=== PATIENT | female | born 1990 | race Caucasian/White ===

== ENCOUNTER 2024-02-12 22:16 | Emergency (ER) | payer OTHER, SELFPAY ==
--- NOTE | ~2024-02-12 | XR_ITS ---
EXAMINATION: XR chest 2V DATE: 02/12/2024 22:44 INDICATION: Chest pain. TECHNIQUE: Frontal and lateral views of the chest were obtained. COMPARISON: None. FINDINGS: There is no pneumonia, pleural effusion, or pneumothorax. The heart size is normal. IMPRESSION: 1. No acute cardiopulmonary disease. Reviewed, dictated and finalized at location A.
[2024-02-12 22:18] VITALS: BP 153/89; PULSE 100; RESP 15; TEMP 36.4; O2SAT 100
--- NOTE | 2024-02-12 22:24 | ECG_ITS ---
Test Date: 2024-02-12 22:26:07 Measurements Intervals [place] Rate: 96 P: 56 GA: 158 QRS: 43 QRSD: 88 T: 30 QT: 349 QTc: 442 Interpretive Statements SINUS RHYTHM LOW QRS VOLTAGE POOR R-WAVE PROGRESSION ABNORMAL ECG No previous ECG available for comparison Electronically Signed On 02-13-2024 07:36:19 CDT by Shun Borrero M.D.
[2024-02-12 22:34] LABS: Basophils Absolute Auto 0.1 K/mm3 (0.0-0.1); Basophils Percent Auto 0.6 % (0.2-1.2); Eosinophils Absolute Auto 0.2 K/mm3 (0-0.3); Eosinophils Percent Auto 1.8 % (0-4.4); Hematocrit 40.3 % (37.0-47.0); Immature Granulocyte Absolute 0.08 K/mm3 (0.00-0.031); Immature Granulocyte Percent A 0.8 % (0-0.5); Lymphocytes Absolute Auto 3.46 K/mm3 (0.9-3.2); Lymphocytes Percent Auto 34.8 % (18.3-44.2); Mean Corpuscular HGB Conc 34.7 g/dl (32-36); Mean Corpuscular Hemoglobin 30.6 pg (26-34); Mean Corpuscular Volume 88.2 fl (80-100); Mean Platelet Volume 9.3 fl (7.4-10.4); Monocytes Absolute Auto 1.1 K/mm3 (0.1-0.6); Monocytes Percent Auto 10.8 % (2.6-8.5); Neutrophils Absolute Auto 5.1 K/mm3 (1.3-6.7); Neutrophils Percent Auto 51.2 % (45.5-73.1); Platelet Count Result 248 k/mm3 (150-375); Red Blood Count 4.57 M/mm3 (4.2-5.4); Red Cell Distribution Width 12.6 % (11.5-14.5); White Blood Count 9.9 K/mm3 (4.5-10.0)
[2024-02-12 22:51] LABS: INR 0.9
[2024-02-12 22:52] LABS: Partial Thromboplastin Time 27.7 Seconds (22.3-36.8)
[2024-02-12] MEDS: ASPIRIN 81 MG CHEWABLE TABLET 324 MG PO (22:59)
[2024-02-12 23:01] LABS: Alanine Aminotransferase 28 U/L (6-35); Albumin Level 4.5 g/dL (3.5-5.1); Alkaline Phosphatase 66 U/L (38-126); Anion Gap 11 mmol/L (4-12); Aspartate Amino Transferase 33 U/L (14-36); Bilirubin,Total 0.6 mg/dL (0.2-1.3); Blood Urea Nitrogen 18 mg/dL (7-17); Calcium 9.4 mg/dL (8.4-10.2); Carbon Dioxide 26 mmol/L (22-30); Chloride 101 mmol/L (98-107); Estimated CRCL calculation 83 ml/min; Estimated Glomerular Filt Rate > 60; Glucose 106 mg/dL (65-110); Lipase 279 U/L (23-300); Potassium 3.9 mmol/L (3.4-5.0); Sodium 138 mmol/L (137-145)
--- NOTE | 2024-02-12 23:04 | ED.CHESTPAIN ---
HPI - Chest Pain General Chief Complaint: Chest Pain Stated Complaint: chest pain Time Seen by Provider: 02/12/24 22:29 Source: patient Mode of arrival: ambulatory Limitations: no limitations History of Present Illness HPI narrative: This is a 33-year-old female who presents to the ED with chief complaint of chest pain intermittent for the past week. Patient reports today she started to feel paresthesias in her left arm and left leg but denies any strength loss. States that there is some pain that feels like a band wrapping around the left leg. Reports the pain in the chest is midsternal and does not really radiate. Denies association with exertion. Denies recent illness, fevers, chills, cough, shortness of breath. Does endorse a lot of increased stress lately with her family members being sick and changing jobs. Related Data Allergies Allergy/AdvReac Type Severity Reaction Status Date / Time No Known Allergies Allergy Verified 02/12/24 22:25 Review of Systems Review of Systems: All systems as dictated in HPI Exam Narrative: GENERAL: Well-appearing, well-nourished, and in no acute distress. HEAD: Normocephalic, atraumatic. EYES: PERRLA and EOMI. ENT: Nares clear, no rhinorrhea or epistaxis. Mucous membranes moist. Oropharynx without tonsillar hypertrophy exudate or other lesions. NECK: Supple. No adenopathy or masses. CHEST: No respiratory distress. Clear to auscultation. No wheezes rales or rhonchi HEART: Regular rate and rhythm. No murmur heard. Normal peripheral pulses. ABDOMEN: Soft, nontender, nondistended, normal active bowel sounds. MSK: Normal range of motion. No edema. SKIN: Warm, dry, no rash. NEURO: Alert and oriented x4. No focal deficits. PSYCH: Normal mood and affect. Course Vital Signs Vital signs: Vital Signs Temperature 97.6 F 02/12/24 22:18 Pulse Rate 100 02/12/24 22:18 Respiratory Rate 15 02/12/24 22:18 Blood Pressure 153/89 H 02/12/24 22:18 Pulse Oximetry 100 02/12/24 22:18 Oxygen Delivery Room Air 02/12/24 22:18 Temperature 97.6 F 02/12/24 22:18 Pulse Rate 100 02/12/24 22:18 Respiratory Rate 15 02/12/24 22:18 Blood Pressure 153/89 H 02/12/24 22:18 Pulse Oximetry 100 02/12/24 22:18 Oxygen Delivery Room Air 02/12/24 22:18 MDM - Chest Pain MDM Narrative Medical decision making narrative: This is a 33-year-old female who presents to the ED with chief complaint of chest pain and extremity paresthesias. Vitals are normal. Exam is benign overall. ECG shows sinus rhythm with no acute ischemic findings. Troponin and D-dimer are normal. Chest x-ray is normal. Patient is pain free on re-evaluation. Heart score 0. Pt will be discharged in stable condition. Return precautions given and supportive measures discussed. Pt is understanding and agreeable with plan for discharge and follow-up with PCP. Lab Data 02/12/24 22:30 02/12/24 22:30 Labs: Lab Results 02/12/24 02/12/24 Range/Units 22:29 22:30 WBC 9.9 (4.5-10.0) K/mm3 RBC 4.57 (4.2-5.4) M/mm3 Hgb 14.0 (12.0-15.0) g/dL Hct 40.3 (37.0-47.0) % MCV 88.2 (80-100) fl MCH 30.6 (26-34) pg MCHC 34.7 (32-36) g/dl RDW 12.6 (11.5-14.5) % Plt Count 248 (150-375) k/mm3 MPV 9.3 (7.4-10.4) fl Immature Gran % (Auto) 0.8 H (0-0.5) % Neut % (Auto) 51.2 (45.5-73.1) % Lymph % (Auto) 34.8 (18.3-44.2) % [place] % (Auto) 10.8 H (2.6-8.5) % Eos % (Auto) 1.8 (0-4.4) % Baso % (Auto) 0.6 (0.2-1.2) % Lymph # (Auto) 3.46 H (0.9-3.2) K/mm3 [place] # (Auto) 1.1 H (0.1-0.6) K/mm3 Eos # (Auto) 0.2 (0-0.3) K/mm3 Baso # (Auto) 0.1 (0.0-0.1) K/mm3 Abs Immat Gran (auto) 0.08 H (0.00-0.031) K/mm3 Absolute Neuts (auto) 5.1 (1.3-6.7) K/mm3 Absolute Nucleated RBC 0.000 (0.0-0.012) K/mm3 Nucleated RBC % 0.0 (0.0-0.2) % PT 13.0 (11.1-14.7) Seconds INR 0.9 APTT 27.7 (22.3-36
[2024-02-12 23:13] LABS: Troponin I < 0.012 ng/mL (0.000-0.034)
[2024-02-12 23:30] VITALS: BP 133/90; PULSE 69; PULSE 72; RESP 14; O2SAT 100
[2024-02-13 00:14] LABS: D Dimer 0.46 ug/mL (<0.48)
== END 2024-02-13 00:30 | disposition home or self-care (01) ==
PROVIDERS: Emergency Medicine; Emergency Provider Physician Assistant
DX: R07.89 Other chest pain (principal); R20.2 Paresthesia of skin; R94.31 Abnormal electrocardiogram [ECG] [EKG]
CPT/HCPCS: 36415; 71046; 80053; 83690; 84484; 85025; 85380; 85610; 85730; 93005; 99284; A9270

== ENCOUNTER 2024-09-27 12:51 | Outpatient (CLI) | payer BC, SELFPAY ==
--- NOTE | ~2024-09-27 | MMUS_ITS ---
EXAMINATION: US breast BI complete, MM diagnostic jossy BI w james HISTORY: Follow-up abnormal mammogram TECHNIQUE: Additional 3-D tomosynthesis images of the breasts were performed and synthetic 2-D images were generated. CAD analysis was submitted and interpreted. High resolution bilateral complete breas t ultrasound was performed. COMPARISON: Comparison to multiple prior studies sequentially, with oldest reviewed study dated 01/06. BREAST PARENCHYMAL COMPOSITION: Dense: The breasts are heterogeneously dense, which may obscure small masses FINDINGS: MAMMOGRAPHIC FINDINGS: There is focal asymmetry in the superior aspect of the left breast on MLO view, middle third. There i s no mammographic evidence for malignancy in the right breast. Stable right breast asymmetries. ULTRASOUND: Complete US of all 4 quadrants of the breast/s and retroareolar region was reviewed. Right breast: At 8:00, 3 cm from the nipple there is a cluster of microcysts measuring 7 mm in aggreg ate. At 9:00, 4 cm from the nipple there is a 3 mm cyst. Left breast: At 2:00, 4 cm from the nipple there are cysts. The largest measures 7 mm. At 8:00, 3 cm from the nipple there is a 4 mm cyst. At 11:00, 3 cm from the nipple there is an oval hypoechoic mass with internal cystic changes, likely a benign cluster of microcysts measuring 8 mm. IMPRESSION: 1. No evidence for malignancy in the right breast. Probable benign left breast mass at 11:00, 3 cm fr om the nipple. 2. Recommend 6 month follow-up diagnostic left mammogram and Limited left breast ultrasound BI-RADS category 3, probably benign findings. Reviewed, dictated and finalized at location B. IMPRESSION: 1. No evidence for malignancy in the right breast. Probable benign left breast mass at 11:00, 3 cm from the nipple. 2. Recommend 6 month follow-up diagnostic left mammogram and Limited left breas t ultrasound BI-RADS category 3, probably benign findings.
--- OUTSIDE RECORDS SUMMARY | 2024-09-27 14:06 | XMS_ITS | Encounter Summary ---
Author Organization [facility] Address [address] [place] [address] Phone Care Team Providers Care Bulk Materials Handling Plant Operator Name Role Phone Lolly Chatman PAC Primary Care Provider + Encounter Details Date Type Department Care Team ([facility] st Contact Info) Description 09/07/2024 Telephone [facility] - Primary Care [address] [phone] Lolly Chatman, PAC [address] [place] [address] Social History Tobacco Use Types Packs/Day Years Used Date Smoking Tobacco: Never Smokeless Tobacco: Never Alcohol Use Standard Drinks/Week Comments Yes 1 (1 standard drink = 0.6 oz pur e alcohol) social PHQ-2 Answer Date Recorded Total Score - Questions 1-9 0 06/17 Sexually Active Control Partners Comments Yes I.U.D. Female Comments No Sex and Gender Information Value Date Recorded Sex Assigned at Not on file Legal Sex Female 2:05 PM CDT Gender Identity Not on file Sexual Orientation Not on file documented as of this encounter Miscellaneous Notes * Telephone Encounter - Shauna Healy - 09/07/2024 4:43 PM CDT PCP clean up attempt #1- left voicemail documented in this encounter Plan of Treatment Not on file documented as of this encounter Visit Diagnoses Not on filedocumented in this encounter Additional Health Concerns Assessment Noted Time PHQ-9 Depression Total Score: 0 07/14/19 21 12:00 PM FINANCIAL REPRESENTATIVE documented as of this encounter Care Teams Bulk Materials Handling Plant Operator Relationship Specialty Start Date End Date Lolly Chatman PAC PCP - General Physician Prop Attendant 02/16/20 09/09/24 documented as of this encounter
--- OUTSIDE RECORDS SUMMARY | 2024-09-27 14:06 | XMS_ITS | Encounter Summary ---
Author Organization [facility] Address [address] [place] [address] Phone Care Team Providers Care Nuisance Animal Damage Control Agent Name Role Phone Lolly Chatman Primary Care Provider + Reason for Visit * Reason Comments Medication Refill Encounter Details Date Type Department Care Team (Late st Contact Info) Description 05/30/2021 Refill [facility] - Endocrinology & Diabetes - [place] [address] [place] [phone] Hugh Garza MD [address] [place] [address] Medication Refill Social History Tobacco Use Types Packs/Day Years [...] on file Sexual Orientation Not on file COVID-19 Exposure Response Date Recorded In the last month, have you been in contact with someone who was confirmed or suspected to have Coronavirus / COVID-19? No / Unsure 05/30/2021 12:47 PM TANK FARM GAUGER documented as of this encounter Miscellaneous Notes * Telephone Encounter - Felicitas Kumar RN - 05/30/2021 11:59 AM CST Pharmacy requested a refill on the following medication(s): Requested Prescriptions Pending Prescriptions Disp Refills ??? levothyroxine (SYNTHROID) 125 MCG Tablet [Pharmacy Med Name: LEVOTHYROXINE 0.125MG (125MCG) TAB] 90 Tablet 1 Sig: TAKE 1 TABLET BY MOUTH DAILY Last refill: 11/24/20 #90, R: 1 Labs were last completed on: 09/14/20 Are there overdue labs orders? Yes, TSH, FT4, And Tumor marker due 02/14/21 .Refill refused with this reason. Last OV: 10/10/2020 Next OV: Visit date not found Routing to provider. FARM GAUGER documented in this encounter Plan of Treatment Not on file documented as of this encounter Visit Diagnoses Not on filedocumented in this encounter Additional Health Concerns Assessment Noted Time PHQ-9 Depression Total Score: 0 07/14/19 12:00 PM TANK FARM GAUGER documented as of this encounter Care Teams Nuisance Animal Damage Control Agent Relationship Specialty Start Date End Date Lolly Chatman PAC PCP - General Physician Integrated Logistics Operations Manager 02/16/20 09/09/24 documented as of this encounter
--- OUTSIDE RECORDS SUMMARY | 2024-09-27 14:06 | XMS_ITS | Clinical Summary ---
Author Organization [facility] Address [address] [place] [address] Care Team Providers Care Clinical Rn Manager Name Role Phone Daisha Garber MD Primary Care Provider [phone] Allergies No known active allergies Medications Ca Phosphate-Becca calciferol 250-10 MG-MCG Chew Tab Chew 1 tablet by mouth daily. Active levothyroxine (SYNTHROID) 125 MCG tabletIndicatio ns:Disease of thyroid gland Take 1 tablet (125 mcg total) by mouth daily. 90 tablet 06/01/2024 Active sertraline (ZOLOFT) 50 MG tabletIndicatio ns:JOSE MANUEL (generalized anxiety disorder) Take 1.5 tablets (75 mg total) by mouth nightly. 135 tablet 1 07/30/2024 Active Active Problems Problem Noted Date Diagnosed Date Anxiety Overview (04/16/2024): generalized anxiety disorder Disease of thyroid gland Overview (04/16/2024): thyroid cancer (microcarcinoma) Encounters Date Type Department Care Team Description 09/21/2024 Telephone [facility] [place] [address] [place] [address] Daisha Garber MD Mammography Order 07/30/2024 7:20 AM CRIMINALIST TECHNICIAN Office Visit [facility] [facility] [place] [address] [place] [address] Daisha Garber MD Depression; Anxiety; Abnormal Mammography 07/30/2024 Travel 07/13/2024 Telephone [facility] Multispecialty Care - [address] [place] [address] Daisha Garber MD Results from Last 3 Months Immunizations Immunization Administration Dates Next Due Fluzone (IIV3, Trivalent, 0. 5 ML Prefilled Syringe) 06/01/2024 Influenza Adult (Generic) 03/22/2023,05/03/2022, 02/16/2020 Td (TDVAX) 12/13/2021 Tdap (Adacel) 06/01/2024 Family History Medical History Relation Comments Cancer Father melanoma Hypertension Father Arthritis Maternal Grandfather Cancer Maternal Grandfather prostate Heart Disease Maternal Grandfather heart attac k (survived) Hypertension Maternal Grandfather Arthritis Maternal Grandmother Heart Disease Maternal Grandmother heart attac k (survived) Hypertension Maternal Grandmother Mental Health Maternal Grandmother anxiety Miscarriages / Stillbirths Maternal Grandmother Vision loss Maternal Grandmother glaucoma Arthritis Mother Asthma Mother Heart Disease Mother Afib, HBP Hypertension Mother Heart Disease Paternal Grandfather heart attac k (cause of ) Cancer Paternal Grandmother breast Heart Disease Paternal Grandmother heart attac k (cause of ) Hypertension Paternal Grandmother Alcohol Abuse Paternal Uncle 1 Heart Disease Paternal Uncle 2 heart attack (c ause of ) Mental Health Sister anxiety Relation Status Comments Father Maternal Grandfather Maternal Grandmother Mother Paternal Grandfather Paternal Grandmother Paternal Uncle 1 Paternal Uncle 2 Sister Social History Tobacco Use Types Packs/Day Years Used Date Smoking Tobacco: Never Smokeless Tobacco: Never Tobacco Cessation:Counseling Given: Yes Comments:Counseled by Dr. Garber. Alcohol Use Standard Drinks/Week Comments Not Currently 0 (1 standard drink = 0.6 oz pur e alcohol) < 1 drink a week AUDIT-C Answer Date Recorded Q1: How often do you have a drink containing alcohol? Never 04/16/2024 Q2: How many drinks containi ng alcohol do you have on a typical day when you are drinking? Patient does not drink Q3: How often do you have si x or more drinks on one occasion? Never 04/16/2024 PHQ-2 Answer Date Recorded Patient Health Questionnaire-2 Score 0 06/01/2024 Comments No Sex and Gender Information Value Date Recorded Sex Assigned at Female 07/30/2024 7:26 AM CRIMINALIST TECHNICIAN Legal Sex Female 9:40 AM CDT Gender Identity Female 07/30/2024 7:26 AM CRIMINALIST TECHNICIAN Sexual Orientation Not on file Last Filed Vital Signs Vital Sign Reading Time Taken Comments Blood Pressure 132/89 07/30/2024 7:27 AM CRIMINALIST TECHNICIAN Pulse 75 07/30/2024 7:27 AM CRIMINALIST TECHNICIAN Temperature 37 C (98.6 F) 07/30/2024 7:27 AM CRIMINALIST TECHNICIAN Respiratory Rate 16 07/30/2024 7:27 AM CRIMINALIST TECHNICIAN Oxygen Saturation 98% 07/30/2024 7:27 AM CRIMINALIST TECHNICIAN Inhaled Oxygen Concentration - - Weight 84.3 kg (185 lb 12.8 oz) 07/30/2024 7:27 AM CRIMINALIST TECHNICIAN Height 165.1 cm (5' 5 ) 07/30/2024 7:27 AM CRIMINALIST TECHNICIAN Body Mass Index 30.92 07/30/2024 7:27 AM CRIMINALIST TECHNICIAN Plan of Treatment Upcoming Encounters Date Type Department Care Team (Late st Contact Info) Description 01/26/2025 7:20 AM CDT Office Visit [facility] Multispecialty Care - [address] [address] [address] [place] [address] Daisha Garber MD [address] [place] [address] [address] [place] [address] Health Maintenance Due Date Last Done Comments Hepatitis B Vaccines (1 of 3 - 19+ 3-dose series) 2008 Cervical Cancer Screening Pap Smear (Age 30 to 64) Every 3 Years 07/14/2023 07/14/2020, 07/14/2020 COVID-19 Vaccine ( season) 2024 03/22/2023, 05/03/2022, 05/18/2021, Additional history exists PHQ-2 (Physician [place]) 06/16/2024 06/01/2024 Annual Physical 04/16/2025 04/16/2024 Cervical Cancer Screening Pap with HPV Testing (Age 30 to 64) Every 5 Years 07/14/2025 07/14/2020, 07/14/2020, 07/14/2020 Cervical Cancer Screening with HPV 07/14/2025 DTaP, Tdap and Td Vaccines (2 - Td or Tdap) 06/01/2034 06/01/2024, 12/13/2021 Hepatitis C Completed 04/21/2024 HPV Vaccines Aged Out No longer eligi ble based on patient's age to complete this topic Meningococcal B Vaccine Aged Out No l onger eligible based on patient's age to complete this topic Meningococcal Vaccine Aged Out No isabela marixa eligible based on patient's age to complete this topic Pneumococcal Vaccine: Pediatrics (0 to 5 Years) and At-Risk Patients (6 to 49 Years) Aged Out No longer eligible based on patient's age to complete this topic RSV Immunizations Under 20 Months Aged Out No longer eligible based on patient's age to complete this topic Procedures Procedure Name Priority Date/Time Associated Diagnosis Comments EVENT RECORDER (ECG) UP TO 30 DAYS COMPLETE Routine 07/12/2024 2:57 PM CRIMINALIST TECHNICIAN Palpitations HEPATITIS C ANTIBODY Routine 04/21/2024 7:33 AM CRIMINALIST TECHNICIAN Annual physical exam Establishing care with new doctor, encounter for General medical exam Encounter for hepatitis C screening test for low risk patient OUTSIDE CYTOPATH CERV/VAG INTERPRET (PAP) 07/14/2020 from Last 3 Months or Most Recently Relevant to Health Maintenance Results * EVENT RECORDER (ECG) UP TO 30 DAYS COMPLETE (07/12/2024 2:57 PM CRIMINALIST TECHNICIAN) [facility] - 07/12/2024 2:57 PM CRIMINALIST TECHNICIAN [address] [place] [address] MANAGER ECONOMIC REPORT PATIENT NAME: Jacqueline López : 1990 PCP: DAISHA GARBER MD INTERPRETING CHIEF INFORMATICS OFFICER: Polly Moncada MD INDICATION: Palpitations Baseline Rhythm * The baseline rhythm was Sinus Rhythm with heart rates ranged between 50 and 172 beats per minute, with average rate of 71 beats per minute. A-V Conduction * No Second Degree AV Block Type II. * No Third Degree AV Block. * No Pauses. Supraventricular Arrhythmia * There were 978 Supraventricular Ectopic beats with a burden of <1%. * 1 Supraventricular Tachycardia events - the longest episode was 1.0s on 06/13 00:21, and the fastest episode was 109 BPM on 06/13 00:21. Ventricular Arrhythmia * There were 771 Ventricular Ectopic beats with a burden of <1%. * No Ventricular Tachycardia. Atrial Fibrillation * No Atrial Fibrillation. Patient Triggered Events * 17 patient triggered events, 15 had symptoms specified. SUMMARY: Normal monitor, no significant arrhythmia burden noted. No symptom rhythm correlation Daisha Garber MD CV VASCULAR ORDERABLES Final Res ult [facility] * HEPATITIS C ANTIBODY (04/21/2024 7:33 AM CRIMINALIST TECHNICIAN) HEPATITIS C AB NON-REACTI VE NON-REACT LAYLA 04/21/2024 6:41 PM CRIMINALIST TECHNICIAN [facility] Comment: ANTIBODIES TO HCV NOT DETECTED. DOES NOT EXCLUDE THE POSSIBILITY OF EXPOSURE TO HCV. 04/21/2024 7:33 AM CRIMINALIST TECHNICIAN Daisha Garber MD LABORATORY Final Result Performing Organization Address City/[facility]/ZIP Co de Phone Number [facility] [address] [place] [address], [id number] * PAP SMEAR WITH HPV (07/14/2020) 07/14/2020 [facility] Scanned SCANNING Final Resu lt from Last 3 Months or Most Recently Relevant to Health Maintenance Insurance Care Teams Clinical Rn Manager Relationship Specialty Start Date End Date Daisha Garber MD [address] [address] PCP - General INTERNAL MEDICINE 04/16/24
--- OUTSIDE RECORDS SUMMARY | 2024-09-27 14:06 | XMS_ITS | Clinical Summary ---
Author Organization [facility] Address [address] [place] [address] Phone Care Team Providers Care Manager Business Planning Name Role Phone Unavailable Primary Care Provider Unavailabl e Allergies No known active allergies Medications levothyroxine (SYNTHROID) 125 MCG Tablet Take 1 Tablet by mouth daily. 90 Tablet 3 12/05/2023 Active Wegovy 0.25 MG/0.5ML Solution Auto-injector 0.25 mg once a week for 4 weeks 2 mL 1 12/05/2023 Active Active Problems Problem Noted Date Diagnosed Date History of thyroid cancer 07/23/2023 History of dysmenorrhea 11/29/2020 Personal history of dysmenorrhea 10/04/2020 History of menorrhagia 10/04/2020 Well woman exam with routine gynecological exam 07/14/2020 Pap smear for cervical cancer screening 07/14/19 Presence of IUD 07/14/2020 Assessment & Plan (10/04/2020 10:59 AM CDT): Old IUD removed on 10-04-20 New Mirena IUD placed on 10-04-20 Dysmenorrhea 07/14/2020 Encounters Date Type Department Care Team Description 09/07/2024 Telephone [facility] - Primary Care [facility] [address] [place] [address] Lolly Chatman PAC from Last 3 Months Immunizations Immunization Administration Dates Next Due Covid-19, Mrna, Lnp-s, PF, 1 00 mcg/0.5 mL Dose (Moderna) 09/22/2020,08/24/2020 Influenza Vaccine, Quadrivalent, PF 05/03/2022,0 02/16/2020 TD VACCINE 12/13/2021 Family History Medical History Relation Name Comments Cancer Father skin cancer Hypertension Father Heart Attack Maternal Grandfather Javier Hypertension Mother Heart Attack Paternal Grandfather Cedric cause o f Breast Cancer Paternal Grandmother Vicky Heart Attack Paternal Grandmother Vicky cause o f Heart Attack Paternal Uncle 1 Heart Attack Paternal Uncle 2 Francisco cause of de ath Relation Name Status Comments Father Maternal Grandfather Javier Mother Paternal Grandfather Cedric Paternal Grandmother Vicky Paternal Uncle 1 Paternal Uncle 2 Francisco Social History Tobacco Use Types Packs/Day Years Used Date Smoking Tobacco: Never Smokeless Tobacco: Never Tobacco Cessation:Counseling Given: Not Answered Alcohol Use Standard Drinks/Week Comments Yes 1 [...] on file Sexual Orientation Not on file Last Filed Vital Signs Vital Sign Reading Time Taken Comments Blood Pressure 112/70 12/12/2023 8:04 AM CDT Pulse 66 12/12/2023 8:04 AM CDT Temperature 36.2 C (97.2 F) 12/12/2023 8:04 AM CDT Respiratory Rate 18 12/12/2023 8:04 AM CDT Oxygen Saturation 99% 12/12/2023 8:04 AM CDT Inhaled Oxygen Concentration - - Weight 81.7 kg (180 lb 1.6 oz) 12/12/2023 8:04 A M CDT Height 165.1 cm (5' 5 ) 12/12/2023 8:04 AM CDT Body Mass Index 29.97 12/12/2023 8:04 AM CDT Plan of Treatment Health Maintenance Due Date Last Done Comments Hepatitis C Virus (HCV) Screening 1989 TdaP Immunization 1989 Hepatitis B Immunization (1 of 3 - 19+ 3-dose series) 2008 Pneumococcal Immunization Combined (1 of 2 - PCV) 2008 Pap Smear 07/14/2023 07/14/2020 Influenza Immunization (#1) 2024 10/0 12/2022, 05/03/2022, 02/16/2020 SARS-COV-2 Immunization ( season) 2024 03/22/2023, 05/03/2022, 05/18/2021, Additional history exists Cervical Cancer Screening (CCS) 07/14/2025 HPV/Cotest 07/14/2025 07/14/2020 Respiratory Syncytial Virus (RSV) Immunization (Adult) (1 - 1-dose 75+ series) 2064 DTaP/Tdap/Td Immunization Discontinued 12/13/2021 Meningococcal Immunization (ACWY) Aged Out No longer eligible based on patient's age to complete this topic Rotavirus Immunization Aged Out No lo nger eligible based on patient's age to complete this topic Procedures Procedure Name Priority Date/Time Associated Diagnosis Comments HUMAN PAPILLOMA VIRUS (HPV) Routine 07/14/2020 1:29 PM CITY CLERK Pap smear for cervical cancer screening PATHOLOGY CYTOLOGY LITHOGRAPHED PLATE INSPECTOR Routine 07/14/2020 1:29 PM CITY CLERK Pap smear for cervical cancer screening from Last 3 Months or Most Recently Relevant to Health Maintenance Results * PATHOLOGY CYTOLOGY LITHOGRAPHED PLATE INSPECTOR (07/14/2020 1:29 PM CITY CLERK) SPECIMEN ADEQUACY Satisfactory for evaluation. Endocervical/transf ormation zone component is absent. 07/27/2020 10:41 AM CITY CLERK [facility] DESCRIPTIVE DIAGNOSIS NEGATIVE FOR INTRAEPITHELIAL LESIONS OR MALIGNANCY. 07/27/2020 10:41 AM CITY CLERK [facility] at [address] CITY CLERK OTHER FINDINGS Predominance of coccobacilli present consistent with shift in vaginal manolo. 07/27/2020 10:41 AM CITY CLERK [facility] HPV Reflex if ASCUS? No 07/27/2020 10:41 AM CITY CLERK [facility] Automated Examination Analysis of this sample has been assisted by an automated imaging and review system (Thinprep Imaging System, [employer], [place], [place]). This case is further evaluated and finalized by a auto emissions technician and/or pathologist. 07/27/2020 10:41 AM CITY CLERK [facility] Disclaimer The PAP smear is a screening test designed to detect cancerous or precancerous cells of the uterine cervix. It is one of the best means available for detection of cervical cancer but still carries an inherent false-negative rate. The consequences of a false-negative PAP result can be minimized by adhering to current screening guidelines. The following are general guidelines recommended by the ACS, ASCP, ASCCP, and ACOG: PAP testing is recommended every three years for women 21-29, Co-Testing , a PAP test in conjunction with an HPV (Human Papillomavirus) test for women ages 30-65, and no PAP or HPV testing for women under the age of 21 or older than 65 unless clinically indicated. 07/27/2020 10:41 AM CITY CLERK [facility] Other CERVIX UTERI STRUCTURE / Unknown Non-Phlebotomy Collection / Unknown 07/14/2020 1:29 PM CITY CLERK 07/14/2020 1:29 PM CITY CLERK us Brittany Patel APRN, CNM PATHOLOGY/CYTOLOGY ORD ERABLES Final Result [facility] [address] [place] [address], * HUMAN PAPILLOMA VIRUS (HPV) (07/14/2020 1:29 PM CITY CLERK) HPV OTHER HIGH RISK TYPES, PCR NEGATIVE NEGATIVE 07/17/2020 3:08 PM CITY CLERK [facility] Comment: The following Other High Risk types were not detected: 31, 33, 35, 39, 45, 51, 52, 56, 58, 59, 66, and 68. A negative high-risk HPV result does not exclude the possibility of future cytologic HSIL or underlying CIN2-3 or cancer. The presence of PCR inhibitors may cause false negative or invalid results. If concentrations of whole blood in the sample exceed 1.5% (dark red or brown coloration) in PreservCyt solution, there is a likelihood of obtaining a false-negative result. HPV TYPE 16 NEGATIVE NEGATIVE 07/17/2020 3:08 PM CITY CLERK [facility] Comment: A negative high-risk HPV result does not exclude the possibility of future cytologic HSIL or underlying CIN2-3 or cancer. The presence of PCR inhibitors may cause false negative or invalid results. If concentrations of whole blood in the sample exceed 1.5% (dark red or brown coloration) in PreservCyt solution, there is a likelihood of obtaining a false-negative result. HPV TYPE 18 NEGATIVE NEGATIVE 07/17/2020 3:08 PM CITY CLERK [facility] Comment: A negative high-risk HPV result does not exclude the possibility of future cytologic HSIL or underlying CIN2-3 or cancer. The presence of PCR inhibitors may cause false negative or invalid results. If concentrations of whole blood in the sample exceed 1.5% (dark red or brown coloration) in PreservCyt solution, there is a likelihood of obtaining a false-negative result. HPV ORDER BE USED FOR SCREENING OR DIAGNOSTIC SCREENING 07/17/2020 3:08 PM CITY CLERK [facility] Blood Venipuncture / Unknown 07/14/2020 1:29 PM CITY CLERK 07/14/2020 1:29 PM CITY CLERK Narrative [facility] - 07/17/2020 3:08 PM CITY CLERK Performed by Real-Time Polymerase Chain Reaction (PCR) on the [employer] 4800. This assay has been validated for use with post-aliquot samples from the [employer] processor. us Brittany Patel APRN, CNM LAB SEND OUTS Final Result [facility] [address] [place] [address], [place] from Last 3 Months or Most Recently Relevant to Health Maintenance Insurance [facility]
--- OUTSIDE RECORDS SUMMARY | 2024-09-27 14:06 | XMS_ITS | Encounter Summary ---
Author Organization [facility] Address [facility] [place] [address] Care Team Providers Care Sales Solutions Representative Name Role Phone Daisha Garber MD Primary Care Provider [phone] Encounter Details Date Type Department Care Team (Latest Contact Info) Description 04/26/2024 [email or web address] Message Enc [facility] [place] [address] [place] [address] [address] [place] [address] Daisha Garber MD [address] [place] [address] [address] [place] [address] Dermatology Referral Social History Tobacco Use Types Packs/Day Years Used Date Smoking Tobacco: Never Smokeless Tobacco: Never Comments:Counseled by Dr. Alondra gatica. Alcohol Use Standard Drinks/Week Comments Not Currently [...] Date Recorded Patient Health Questionnaire-2 Score 0 04/16/2024 Comments No Sex and Gender Information Value Date Recorded Sex Assigned at Female 07/30/2024 7:26 AM DIRECTOR OF COMMUNITY CENTER Legal Sex Female 9:40 AM CDT Gender Identity Female 07/30/2024 7:26 AM DIRECTOR OF COMMUNITY CENTER Sexual Orientation Not on file documented as of this encounter Plan of Treatment Upcoming Encounters Date Type Department Care Team (Late st Contact Info) Description 01/26/2025 7:20 AM CDT Office Visit [facility] - [place] [address] [address] [place] [address] Daisha Garber MD [address] [place] [phone] documented as of this encounter Visit Diagnoses Not on filedocumented in this encounter Additional Health Concerns Assessment Noted Time PHQ-9 Depression Total Score: 2 04/16/20 3:25 PM CDT documented as of this encounter Care Teams Sales Solutions Representative Relationship Specialty Start Date End Date Daisha Garber MD [address] [place] [phone] PCP - General INTERNAL MEDICINE 04/16/24 documented as of this encounter
== END 2024-09-27 12:52 | disposition home or self-care (01) ==
PROVIDERS: PCP Internal Medicine; Visit Provider Internal Medicine
DX: R92.8 Other abnormal and inconclusive findings on diagnostic imaging of breast (principal)
CPT/HCPCS: 76641; 77062; 77066; G0279